=== PATIENT | male | born 1960 | race Caucasian/White ===

== ENCOUNTER 2020-02-06 01:38 | Emergency (ER) | payer BC ==
--- OUTSIDE RECORDS SUMMARY | 2020-02-06 01:40 | XMS REPORT | Continuity of Care Document ---
:1960 Author Organization [facility] t Address [address] [place] [address] Care Team Providers Name Role Phone Oswald Bob MD Attending Clinician Problems This patient has no known problems. Allergies, Adverse Reactions, Alerts This patient has no known allergies or adverse reactions. Medications This patient has no known medications. Procedures This patient has no known procedures. Encounters Start End Encounter Admission Attending Care Care Encounter Source Date/Time Date/Time Type Type Clinicians Facility Department ID 2018-11-13 2018-11-13 Emergency Lisbeth, TRAUMA [id number] 09:53:04 12:36:00 Justin WILKINS [id number] Results This patient has no known results.
--- NOTE | 2020-02-06 02:36 | EDPHYS ---
Physician Documentation [facility] Name: Rohan Grimes Age: 59 yrs Sex: Male : 1960 Arrival Date: 02/06/2020 Time: 01:42 Bed 16 Private MD: ED Physician Russ Barker HPI: 02/05 02:14 This 59 yrs old Male presents to ER via Ambulatory with complaints of Urinary [place] Problem. Historical: - Allergies: 01:50 No Known Allergies; rr5 - Home Meds: 01:50 rosuvastatin oral oral [Active]; Metformin Oral [Active]; Glimepiride Oral [Active]; rr5 - PMHx: 01:50 Diabetes - NIDDM; Hyperlipidemia; rr5 - PSHx: 01:50 None; rr5 - Immunization history:: Adult Immunizations up to date, Flu vaccine is up to date. - Social history:: Smoking status: Patient reports the use of cigarette tobacco products, denies chronic smoking, but will smoke occasionally, Patient uses alcohol, occasionally. Patient/guardian denies using street drugs. ROS: 02:15 Constitutional: Negative for fever, chills, and weight loss, Eyes: Negative for injury, [place] pain, redness, and discharge, ENT: Negative for injury, pain, and discharge, Neck: Negative for injury, pain, and swelling, Cardiovascular: Negative for chest pain, palpitations, and edema, Respiratory: Negative for shortness of breath, cough, wheezing, and pleuritic chest pain, Back: Negative for injury and pain, MS/Extremity: Negative for injury and deformity, Skin: Negative for injury, rash, and discoloration, Neuro: Negative for headache, weakness, numbness, tingling, and seizure, Psych: Negative for depression, anxiety, suicide ideation, homicidal ideation, and hallucinations, Allergy/Immunology: Negative for hives, rash, and allergies, Endocrine: Negative for neck swelling, polydipsia, polyuria, polyphagia, and marked weight changes, Hematologic/Lymphatic: Negative for swollen nodes, abnormal bleeding, and unusual bruising. 02:15 Abdomen/GI: Positive for abdominal pain, of the suprapubic area. Exam: 02:15 Constitutional: This is a well developed, well nourished patient who is awake, alert, [place] and in no acute distress. Head/Face: Normocephalic, atraumatic. Eyes: Pupils equal round and reactive to light, extra-ocular motions intact. Lids and lashes normal. Conjunctiva and sclera are non-icteric and not injected. Cornea within normal limits. Periorbital areas with no swelling, redness, or edema. ENT: Nares patent. No nasal discharge, no septal abnormalities noted. Tympanic membranes are normal and external auditory canals are clear. Oropharynx with no redness, swelling, or masses, exudates, or evidence of obstruction, uvula midline. Mucous membranes moist. Neck: Trachea midline, no thyromegaly or masses palpated, and no cervical lymphadenopathy. Supple, full range of motion without nuchal rigidity, or vertebral point tenderness. No Meningismus. Chest/axilla: Normal chest wall appearance and motion. Nontender with no deformity. No lesions are appreciated. Cardiovascular: Regular rate and rhythm with a normal S1 and S2. No gallops, murmurs, or rubs. Normal PMI, no JVD. No pulse deficits. Respiratory: Lungs have equal breath sounds bilaterally, clear to auscultation and percussion. No rales, rhonchi or wheezes noted. No increased work of breathing, no retractions or nasal flaring. Back: No spinal tenderness. No costovertebral tenderness. Full range of motion. Male : Normal genitalia with no discharge or lesions. Skin: Warm, dry with normal turgor. Normal color with no rashes, no lesions, and no evidence of cellulitis. MS/ Extremity: Pulses equal, no cyanosis. Neurovascular intact. Full, normal range of motion. Neuro: Awake and alert, GCS 15, oriented to person, place, time, and situation. Cranial nerves II-XII grossly intact. Motor strength 5/5 in all extremities. Sensory grossly intact. Cerebellar exam normal. Normal gait. Psych: Awake, alert, with orientation to person, place and time. Behavior, mood, and affect are within normal limits. 02:15 Abdomen/GI: Inspection: distension, Bowel sounds: normal, Palpation: mild abdominal tenderness, in the suprapubic area, Liver: no appreciated palpable abnormalities, Hernia: not appreciated. 02:33 : pvr 279 cc. [facility] Vital Signs: 01:50 BP 155 / 78; Pulse 92; Resp 19; Temp 98.3; Pulse Ox 99% ; Weight 92.99 kg; Height 6 ft. rr5 0 in. (182.88 cm); Pain 0/10; 02:55 BP 146 / 80; Pulse 90; Resp 16; Pulse Ox 99% ; rr5 01:50 Body Mass Index 27.80 (92.99 kg, 182.88 cm) rr5 MDM: 01:56 Patient medically screened. [facility] 02:16 Differential diagnosis: nonspecific abdominal pain, UTI, urinary retention, [place] prostatitis, urethritis. Data reviewed: vital signs, nurses notes, lab test result(s), EKG, radiologic studies, CT scan, plain films. Data interpreted: pillowcase maker: rate is 92 beats/min, rhythm is regular, Pulse oximetry: is not applicable for this patient encounter. Test interpretation: by ED physician or midlevel provider:. Counseling: I had a detailed discussion with the patient and/or guardian regarding: the historical points, exam findings, and any diagnostic results supporting the discharge/admit diagnosis, lab results, the need for outpatient follow up, for definitive care, a urologist. 02/05 02:14 Order name: Urine Culture [facility] 02/05 02:23 Order name: Urine Microscopic Only rr5 02/05 02:24 Order name: Urine Dipstick--Ancillary (enter results) 02/05 02:14 Order name: Urine Dipstick-Ancillary (obtain specimen); Complete Time: 02:23 [facility] 02/05 02:14 Order name: Bladder Scanner: PVR PLEASE; Complete Time: 02:23 [facility] Administered Medications: 02:45 Drug: Cipro 500 mg Route: PO; rr5 02:58 Follow up: Response: No adverse reaction rr5 02:46 Drug: Rocephin (cefTRIAXone) 1 grams Route: IM; Site: left gluteus; rr5 02:58 Follow up: Response: No adverse reaction rr5 02:55 Not Given (patient took at home): Flomax 0.4 mg PO once rr5 Disposition: 02/06/20 02:35 Discharged to Home. Impression: Retention of urine, Urinary tract infection, site not specified, Dysuria. - Condition is Stable. - Discharge Instructions: Dysuria, Urinary Tract Infection, Adult, Urinary Tract Infection, Adult, Teid-do-Umdw, Type 1 Diabetes Mellitus, Self Care, Adult, Niqa-nr-Fixj. - Prescriptions for Flomax 0.4 mg Oral Capsule, Sust. Release 24 hr - take 1 capsule by ORAL route once daily 1/2 hour following the same meal each day; 30 capsule. Cipro 500 mg Oral Tablet - take 1 tablet by ORAL route every 12 hours for 7 days; 14 tablet. - Medication Reconciliation Form, Thank You Letter, Antibiotic Education, Prescription Opioid Use form. - Follow up: Private Physician; When: 2 - 3 days; Reason: Recheck today's complaints, Continuance of care, Re-evaluation by your physician. Follow up: Chemo De Jesus MD; When: 2 - 3 days; Reason: Recheck today's complaints, Continuance of care, Re-evaluation by your physician. - Problem is new. - Symptoms have improved. Signatures: Dispatcher [employer] EDLA Russ Barker MD MD cha Roque, Raymond, RN RN rr5 Corrections: (The following items were deleted from the chart) 02:58 02:35 02/06/2020 02:35 Discharged to Home. Impression: Retention of urine; Urinary rr5 tract infection, site not specified; Dysuria. Condition is Stable. Forms are Medication Reconciliation Form, Thank You Letter, Antibiotic Education, Prescription Opioid Use. Follow up: Private Physician; When: 2 - 3 days; Reason: Recheck today's complaints, Continuance of care, Re-evaluation by your physician. Follow up: Chemo De Jesus; When: 2 - 3 days; Reason: Recheck today's complaints, Continuance of care, Re-evaluation by your physician. Problem is new. Symptoms have improved. [place]
--- NOTE | 2020-02-06 02:36 | ER ---
Nurse's Notes [facility] Name: Rohan Grimes Age: 59 yrs Sex: Male : 1960 Arrival Date: 02/06/2020 Time: 01:42 Bed 16 Private MD: Diagnosis: Retention of urine;Urinary tract infection, site not specified;Dysuria Presentation: 02/05 01:50 Chief complaint: Patient states: I think I have urinary blockage. it started 730PM rr5 tonight feels like I want to pee but coming out very little then after 5 minutes feels like need to pee again. denies any pain. 01:50 Coronavirus screen: Client denies travel out of the [place] in the last 14 days. At this rr5 time, the client does not indicate any symptoms associated with coronavirus-19. Ebola Screen: Patient negative for fever greater than or equal to 101.5 degrees Fahrenheit, and additional compatible Ebola Virus Disease symptoms Patient denies exposure to infectious person. Patient denies travel to an Ebola-affected area in the 21 days before illness onset. Initial Sepsis Screen: Does the patient meet any 2 criteria? No. Patient's initial sepsis screen is negative. Does the patient have a suspected source of infection? Yes: Dysuria/Frequency/Urgency/UTI. Risk Assessment: Do you want to hurt yourself or someone else? Patient reports no desire to harm self or others. Onset of symptoms was February 05, 2020 at 19:30. 01:50 Method Of Arrival: Ambulatory rr5 01:50 Acuity: HARVEY 3 rr5 Historical: - Allergies: 01:50 No Known Allergies; rr5 - Home Meds: 01:50 rosuvastatin oral oral [Active]; Metformin Oral [Active]; Glimepiride Oral [Active]; rr5 - PMHx: 01:50 Diabetes - NIDDM; Hyperlipidemia; rr5 - PSHx: 01:50 None; rr5 - Immunization history:: Adult Immunizations up to date, Flu vaccine is up to date. - Social history:: Smoking status: Patient reports the use of cigarette tobacco products, denies chronic smoking, but will smoke occasionally, Patient uses alcohol, occasionally. Patient/guardian denies using street drugs. Screenin:56 Abuse screen: Denies threats or abuse. Denies injuries from another. Nutritional rr5 screening: No deficits noted. Tuberculosis screening: No symptoms or risk factors identified. Fall Risk None identified. Total Velasquez Fall Scale indicates No Risk (0-24 pts). Assessment: 01:56 General: Appears in no apparent distress. comfortable, Behavior is calm, cooperative, rr5 appropriate for age. Pain: Denies pain. Neuro: Level of Consciousness is awake, alert, obeys commands, Oriented to person, place, time. Cardiovascular: Capillary refill < 3 seconds Patient's skin is warm and dry. Respiratory: Airway is patent Respiratory effort is even, unlabored, Respiratory pattern is regular, symmetrical. GI: No signs and/or symptoms were reported involving the gastrointestinal system. : Reports urinary frequency, since 1930 tonight. EENT: No signs and/or symptoms were reported regarding the EENT system. Derm: Skin is intact, is healthy with good turgor, Skin temperature is warm. Musculoskeletal: Capillary refill < 3 seconds. 02:55 Reassessment: Patient appears in no apparent distress at this time. Patient is alert, rr5 oriented x 3, equal unlabored respirations, skin warm/dry/pink. discharge instruction given and explained without complaints made. Vital Signs: 01:50 BP 155 / 78; Pulse 92; Resp 19; Temp 98.3; Pulse Ox 99% ; Weight 92.99 kg; Height 6 ft. rr5 0 in. (182.88 cm); Pain 0/10; 02:55 BP 146 / 80; Pulse 90; Resp 16; Pulse Ox 99% ; rr5 01:50 Body Mass Index 27.80 (92.99 kg, 182.88 cm) rr5 ED Course: 01:42 Patient arrived in ED. ag3 01:50 Kana Acevedo, RN is Primary Nurse. rr5 01:55 Triage completed. rr5 01:56 Russ Barker MD is Attending Physician. [place] 01:56 Arm band placed on right wrist. rr5 01:57 Patient has correct armband on for positive identification. Bed in low position. Call rr5 light in reach. 02:15 Bladder scan completed. 297 ml. rr5 02:24 Urine collected: clean catch specimen, clear. rr5 02:34 Chemo De Jesus MD is Referral Physician. [place] 02:57 No provider procedures requiring assistance completed. Patient did not have IV access rr5 during this emergency room visit. Administered Medications: 02:45 Drug: Cipro 500 mg Route: PO; rr5 02:58 Follow up: Response: No adverse reaction rr5 02:46 Drug: Rocephin (cefTRIAXone) 1 grams Route: IM; Site: left gluteus; rr5 02:58 Follow up: Response: No adverse reaction rr5 02:55 Not Given (patient took at home): Flomax 0.4 mg PO once rr5 Outcome: 02:35 Discharge ordered by MD. goff 02:57 Discharged to home ambulatory. rr5 02:57 Condition: stable 02:57 Discharge instructions given to patient, Instructed on discharge instructions, follow up and referral plans. medication usage, Demonstrated understanding of instructions, follow-up care, medications, Prescriptions given X 2. 02:58 Patient left the ED. rr5 Addendum: 02/09/2020 08:10 Addendum: Culture Results: Positive urine culture. No further action required. Bacteria i w sensitive to prescribed antibiotic. Signatures: Russ Barker MD MD cha Williams, Irene RN DANIELLE [facility] Kana Acevedo, DANIELLE RN rr5
[2020-02-06] MEDS ORDERED: LIDOCAINE 1% MPF 2 ML AMPULE ONE (02:51)
[2020-02-06] MEDS ORDERED: CEFTRIAXONE 1000 MG/VIAL ONE (02:51)
[2020-02-06] MEDS ORDERED: CIPROFLOXACIN HCL 500 MG TAB ONE (02:51)
[2020-02-06] MEDS ORDERED: TAMSULOSIN 0.4 MG SR CAP ONE (02:51)
[2020-02-06 03:53] LABS: Urine Blood NEGATIVE (NEG); Urine Glucose NEGATIVE (NEG); Urine Protein NEGATIVE (NEG); Urine pH 6.5 (5.0-7.0)
[2020-02-06 04:23] LABS: Urine RBC <5 /HPF (NONE SEEN)
[2020-02-06 04:24] LABS: Urine Bacteria LOADED /HPF (NONE SEEN); Urine Culture Reflex Order NOT NEEDED; Urine Mucus 1+ /HPF (NONE SEEN)
[2020-02-06 05:18] VITALS: TEMP 98.3; O2SAT 99
[2020-02-06 05:19] VITALS: BP 146/80
== END 2020-02-06 02:58 | disposition home or self-care (01) ==
LOC: ER 01:38
DX: N39.0 Urinary tract infection, site not specified (principal); R30.0 Dysuria; E78.5 Hyperlipidemia, unspecified; E11.9 Type 2 diabetes mellitus without complications; F17.210 Nicotine dependence, cigarettes, uncomplicated
CPT/HCPCS: 87088; 87086; 87077; 87186; 96372; 99283; J2001; 81003; 81015